=== PATIENT | female | born 1980 | race Caucasian/White ===

== ENCOUNTER → 2022-04-03 07:56 | Outpatient (CLI) | payer OTHER, SELFPAY ==
--- NOTE | 2022-04-03 07:56 | MR_ITS ---
FINAL REPORT CLINICAL HISTORY: back pain, ddd FINDINGS: MRI LUMBAR SPINE W/O CONTRAST Multiplanar MR imaging of the lumbar spine was performed without contrast. On the sagittal T2-weighted images, disc degeneration is seen at multiple levels. There are endplate changes at several. There is mild retrolisthesis of L2 on L3 and L4 on L5. There is no evidence of fracture. The conus has an unremarkable appearance. L1-2: An annular disc bulge is present. L2-3: There is an annular disc bulge with facet arthropathy and vertebral osteophytes. There is mild right neural foraminal narrowing. L3-4: An annular disc bulge is present. L4-5: An annular disc bulge is present. There is a small left foraminal disc protrusion with mild bilateral neural foraminal narrowing. L5-S1: There is an annular disc bulge with facet arthropathy and vertebral osteophytes. There is mild right and moderate left neural foraminal narrowing. There is mild spurring of the left SI joint. IMPRESSION: Multilevel disc degeneration and spondylosis with areas of neural foraminal narrowing which is worse on the left and L5-S1. Left foraminal disc protrusion at L4-5. Reviewed, Interpreted and Dictated by Trevor Bonilla III, MD Transcribed by Maria Dolores ePrez Authenticated and . [facility]
== END ==
PROVIDERS: PCP Emergency Medicine; Visit Provider Emergency Medicine
DX: M54.50 Low back pain, unspecified (principal)
CPT/HCPCS: 72148; 76376

== ENCOUNTER → 2022-04-18 17:53 | Outpatient (CLI) | payer OTHER, SELFPAY ==
[2022-04-18 16:02] LABS: Amphetamine/Metha Screen,Urine Negative ng/ml (<1000); Barbiturates Screen,Urine Negative ng/ml (<200)
[2022-04-18 16:03] LABS: Benzodiazepines Screen,Urine Positive ng/ml (<200)
[2022-04-18 16:04] LABS: Cannabinoid Screen,Urine Positive ng/ml (<50); Cocaine Screen,Urine Negative ng/ml (<300)
[2022-04-18 16:05] LABS: Methadone Screen,Urine Negative ng/ml (<300)
[2022-04-18 16:06] LABS: Opiate Screen,Urine Positive ng/ml (<300)
[2022-04-18 16:07] LABS: Phencyclidine Screen,Urine Negative ng/ml (<25)
== END ==
PROVIDERS: PCP Emergency Medicine; Visit Provider Emergency Medicine
DX: Z79.899 Other long term (current) drug therapy (principal)
CPT/HCPCS: 80305

== ENCOUNTER → 2022-05-14 19:26 | Outpatient (CLI) | payer OTHER, SELFPAY ==
[2022-05-14 21:41] LABS: Amphetamine/Metha Screen,Urine Negative ng/ml (<1000)
[2022-05-14 21:42] LABS: Barbiturates Screen,Urine Negative ng/ml (<200)
[2022-05-14 21:43] LABS: Benzodiazepines Screen,Urine Positive ng/ml (<200); Cannabinoid Screen,Urine Negative ng/ml (<50)
[2022-05-14 21:44] LABS: Cocaine Screen,Urine Negative ng/ml (<300)
[2022-05-14 21:45] LABS: Methadone Screen,Urine Negative ng/ml (<300)
[2022-05-14 21:46] LABS: Opiate Screen,Urine Negative ng/ml (<300); Phencyclidine Screen,Urine Negative ng/ml (<25)
== END ==
PROVIDERS: PCP Emergency Medicine; Visit Provider Emergency Medicine
DX: Z79.899 Other long term (current) drug therapy (principal)
CPT/HCPCS: 80305